=== PATIENT | female | born 2005 | race African-American/Black ===

== ENCOUNTER 2023-01-27 10:15 | Emergency (ER) | payer SELFPAY ==
[2023-01-27] MEDS: Albuterol 0.083% 2.5 MG/3 ML Neb Soln NEB ONE ×3 (10:48→11:45)
[2023-01-27 11:39] LABS: BASOPHILS ABSOLUTE AUTO 0.03 10^3/uL (0.00-0.10); BASOPHILS PERCENT AUTO 0.3 % (0.0-1.0); EOSINOPHILS ABSOLUTE AUTO 0.11 10^3/uL (0.10-0.30); EOSINOPHILS PERCENT AUTO 1.1 % (1.0-3.0); HEMATOCRIT 38.6 % (37.0-47.0); HEMOGLOBIN 11.8 g/dL (12.0-16.0); IMMATURE GRAN ABSOLUTE AUTO 0.01 10^3/uL (0.00-0.50); IMMATURE GRAN PERCENT AUTO 0.1 % (0.0-5.0); LYMPHOCYTES ABSOLUTE AUTO 0.63 10^3/uL (1.00-4.00); LYMPHOCYTES PERCENT AUTO 6.2 % (20.0-40.0); MEAN CORPUSCULAR HEMOGLOBIN 24.1 pg (27.0-31.0); MEAN CORPUSCULAR HGB CONC 30.6 g/dL (32.0-36.0); MEAN CORPUSCULAR VOLUME 78.8 fL (82.0-92.0); MEAN PLATELET VOLUME 10.6 fL (7.4-10.4); MONOCYTES ABSOLUTE AUTO 0.22 10^3/uL (0.10-0.80); MONOCYTES PERCENT AUTO 2.2 % (2.0-8.0); NEUTROPHILS ABSOLUTE AUTO 9.16 10^3/uL (2.50-7.00); NEUTROPHILS PERCENT AUTO 90.1 % (50.0-70.0); PLATELET COUNT,PLT 191 10^3/uL (150-400); WHITE BLOOD CELL COUNT,WBC 10.16 10^3/uL (5.00-10.00)
[2023-01-27] MEDS: methylPREDNISolone Sodium Succinate 125 MG/2 ML SDV IM ONE (11:42)
[2023-01-27] MEDS: methylPREDNISolone Sodium Succinate 125 MG/2 ML SDV IVPUSH ONE (11:42)
[2023-01-27] MEDS: Albuterol/Ipratropium 3.0-0.5 MG/3 ML Neb Soln NEB ONE (12:04)
[2023-01-27 12:08] LABS: PCO2 VENOUS,POC 35 mmHg (41-51); PH VENOUS,POC 7.42 pH (7.32-7.43); PO2 VENOUS,POC 40 mmHg
[2023-01-27 12:47] VITALS: BP 147/74; PULSE 136
[2023-01-27] MEDS: Cyclobenzaprine 10 MG Tab PO ONE (12:57)
== END 2023-01-27 13:05 ==
LOC: KA.ED 10:15
DX: J45.41 Moderate persistent asthma with (acute) exacerbation (principal); Z88.1 Allergy status to other antibiotic agents
CPT/HCPCS: 36415; 71046; 82803; 85025; 96374; 99285-25; A9270-GY; J2930; J7613-GY; J7620-GY

== ENCOUNTER 2023-07-12 23:32 | Emergency (ER) | payer SELFPAY ==
[2023-07-13] MEDS: Cephalexin 250 MG Cap PO ONE (00:30)
== END 2023-07-13 00:38 | disposition home or self-care (01) ==
LOC: KA.ED 23:32
DX: J03.00 Acute streptococcal tonsillitis, unspecified (principal); Z88.0 Allergy status to penicillin
CPT/HCPCS: 99282; A9270; 99283

== ENCOUNTER 2023-10-21 14:34 | Emergency (ER) | payer SELFPAY | END 2023-10-21 16:08 | disposition home or self-care (01) | LOC: KA.ED 14:34 | DX: J35.01 Chronic tonsillitis (principal); R51.9 Headache, unspecified; J45.909 Unspecified asthma, uncomplicated; Z79.899 Other long term (current) drug therapy; Z88.0 Allergy status to penicillin | CPT/HCPCS: 87651-QW; 99283; 99284; U0002 ==